=== PATIENT | male | born 1930 | race Caucasian/White ===

== ENCOUNTER 2016-12-22 09:26 | Outpatient (CLI) | payer OTHER ==
[~2016-12-22 09:26] MED LIST: AMMONIUM LACTATE12 % TOP; ASPIRIN ADULT L81 M1 PO; CARDURA2 MG PO; CEPHALEXIN500 MG PO; CONCERTA27 MG PO; COZAAR100 MG PO; DEMADEX10 MG PO; DOCUSATE SODIU100 MG PO; ECONAZOLE NITRATE 1% TOP; FINASTERIDE5 MG PO; GLIMEPIRIDE2 MG PO; HYDROXYZINE HCL25 MG PO; ISOSORBIDE MONO60 MG PO; KLOR-CON 1010 MEQ PO; METOLAZONE5 MG PO; MILK OF MAGNESI10 ML PO; MIRALAX3350 N1 PO; NITROSTAT0.4 MG SL; NYSTATIN100000 M2 TOP; OXAYDO5 MG PO; PRILOSEC20 MG PO; TAMSULOSIN HCL0.4 MG PO; TRIAMCINOLONE A0.12 TOP; TUMS500 MG PO; VENTOLIN HFA IN; XARELTO20 MG PO
--- NOTE | 2016-12-22 09:54 | DIAGNOSTIC IMAGING REPORT ---
PROCEDURE: XR CHEST 2 VIEW INDICATION: URI TECHNIQUE: PA and lateral view. COMPARISON: Chest x-ray 07/26/2012 FINDINGS: Mild cardiomegaly. Normal mediastinum and pulmonary vasculature. Mildly tortuous aorta. Small left basilar scar in the costophrenic angle. Left axillary surgical clips. No suspicious osseous lesions. Mild dextroscoliosis. IMPRESSION: 1. No acute changes 2. Mild cardiomegaly 3. Results discussed with Dr. Daily
== END 2016-12-22 23:00 ==
LOC: XR SRH 09:26
DX: J06.9 Acute upper respiratory infection, unspecified (principal); I51.7 Cardiomegaly
CPT/HCPCS: 90074; 90100; 91643; 95059